=== PATIENT | male | born 1980 | race Caucasian/White ===

== ENCOUNTER 2018-08-20 19:29 | Emergency (ER) | payer OTHER ==
[2018-08-20 19:38] VITALS: BP 134/85
[2018-08-20] MEDS ORDERED: Sodium Chloride 0.9% 10 ML Syringe FLUSH PRN (19:38)
--- NOTE | 2018-08-20 19:52 | EDM.PDOC ---
ED HPI GENERAL MEDICAL PROBLEM - General Chief Complaint: Chest Pain Stated Complaint: PAIN IN CHEST Time Seen by Provider: 08/20/18 19:51 Source of Information: Reports: Patient, RN, RN Notes Reviewed - History of Present Illness INITIAL COMMENTS - FREE TEXT/NARRATIVE: Pt to ER with c/o upper abdominal pressure and burning pain midsternally, with burning in the throat. He states today at noon it got much worse than it has been in the past. States in the past year he has had difficulty with dairy and digestion. Denies SOB. He states today he was concerned about what was happening , and did notice that he was having some numbness and tingling in the fingers and the bottom lip. Onset: Gradual Mid-Sternal Chest Pain Score (Numeric/FACES): 3 - Related Data Allergies Allergy/AdvReac Type Severity Reaction Status Date / Time No Known Allergies Allergy Verified 08/20/18 19:38 Home Meds: Home Meds . [No Known Home Meds] 09/17/15 [History] Past Medical History - Past Surgical History Male Surgical History: Reports: Vasectomy Social & Family History - Family History Family Medical History: Noncontributory - Tobacco Use Smoking Status *Q: Never Smoker Second Hand Smoke Exposure: No - Recreational Drug Use Recreational Drug Use: No ED ROS GENERAL - Review of Systems Review Of Systems: ROS reveals no pertinent complaints other than HPI. ED EXAM, GENERAL - Physical Exam Exam: See Below Exam Limited By: No Limitations General Appearance: Alert, WD/WN, Mild Distress Eye Exam: Bilateral Eye: EOMI, Normal Inspection Ears: Normal External Exam, Hearing Grossly Normal Nose: Normal Inspection Throat/Mouth: Normal Inspection, Normal Voice, No Airway Compromise Head: Atraumatic, Normocephalic Neck: Normal Inspection, Supple, Non-Tender, Full Range of Motion Respiratory/Chest: No Respiratory Distress, Lungs Clear, Normal Breath Sounds, No Accessory Muscle Use, Chest Non-Tender Cardiovascular: Normal Peripheral Pulses, Regular Rate, Rhythm, No Edema, No Gallop, No JVD, No Murmur, No Rub Peripheral Pulses: 2+: Brachial (L), Brachial (R) GI/Abdominal: Normal Bowel Sounds, Soft, Non-Tender (Male) Exam: Deferred Rectal (Males) Exam: Deferred Back Exam: Normal Inspection, Full Range of Motion, NT Extremities: Normal Inspection, Normal Range of Motion, Non-Tender, Normal Capillary Refill, No Pedal Edema Neurological: Alert, Oriented, CN II-XII Intact, Normal Cognition, Normal Gait, Normal Reflexes, No Motor/Sensory Deficits Psychiatric: Normal Affect, Normal Mood, Anxious Skin Exam: Warm, Dry, Intact, Normal Color, No Rash Lymphatic: No Adenopathy Course - Vital Signs Last Recorded V/S: Last Vital Signs Temp 98.1 F 08/20/18 19:33 Pulse 93 08/20/18 19:33 Resp 16 08/20/18 19:33 BP 134/85 08/20/18 19:33 Pulse Ox 98 08/20/18 19:33 - Orders/Labs/Meds Orders: Active Orders 24 hr Category Date Time Status EKG Documentation Completion [RC] STAT Care 08/20/18 19:38 Active Peripheral IV Care [RC] . DIRECTED Care 08/20/18 19:38 Active Chest 1V Frontal [CR] Stat Exams 08/20/18 20:02 Ordered Sodium Chloride 0.9% [Saline Flush] Med 08/20/18 19:38 Active 10 ml FLUSH ASDIRECTED PRN Peripheral IV Insertion Adult [OM.PC] Routine Oth 08/20/18 19:38 Ordered Medication Orders Sodium Chloride (Saline Flush) 10 ml FLUSH ASDIRECTED PRN PRN Reason: Keep Vein Open Last Admin: 08/20/18 19:43 Dose: 10 ml Labs: Laboratory Tests 08/20/18 08/20/18 Range/Units 19:43 19:43 WBC 8.7 (5.0-10.0) 10^3/uL RBC 4.71 (4.6-6.2) 10^6/uL Hgb 14.4 (14.0-18.0) g/dL Hct 41.5 (40.0-54.0) % MCV 88.1 (80-100) fL MCH 30.6 (27.0-34.0) pg MCHC 34.7 (33.0-35.0) g/dL Plt Count 267 (150-450) 10^3/uL Neut % (Auto) 67.2 (42.2-75.2) % Lymph % (Auto) 23.0 (20.5-50.1) % [place] % (Auto) 6.6 (2-8) % Eos % (Auto) 3.0 (1.0-3.0) % Baso % (Auto) 0.2 (0.0-1.0) % Sodium 135 (135-145) mmol/L Potassium 3.6 (3.6-5.0) mmol/L Chloride 99 L (101-111) mmol/L Carbon Dioxide 24.0 (21.0-31.0) mmol/L Anion Gap 15.6 BUN 13 (7-18) mg/dL Creatinine 0.9 (0.6-1.3) mg/dL Est Cr Clr Drug Dosing 109.78 mL/min Estimated GFR (MDRD) > 60 BUN/Creatinine Ratio 14.44 Glucose 100 (74-105) mg/dL Calcium 8.8 (8.4-10.2) mg/dl Total Bilirubin 0.8 (0.2-1.0) mg/dL AST 33 (10-42) IU/L ALT 36 (10-60) IU/L Alkaline Phosphatase 59 (42-121) IU/L Troponin I < 0.02 (0.00-0.02) ng/ml Total Protein 8.2 (6.7-8.2) g/dl Albumin 4.5 (3.2-5.5) g/dl Globulin 3.7 Albumin/Globulin Ratio 1.22 Meds: Medications Generic Name Dose Route Start Last Admin Trade Name Freq PRN Reason Stop Dose Admin Sodium Chloride 10 ml 08/20/18 19:38 08/20/18 19:43 Saline Flush FLUSH 10 ml ASDIRECTED PRN Administration Keep Vein Open Discontinued Medications Generic Name Dose Route Start Last Admin Trade Name Freq PRN Reason Stop Dose Admin Al Hydroxide/Mg Hydroxide 30 ml 08/20/18 20:02 08/20/18 20:09 Gi Cocktail PO 08/20/18 20:03 30 ml ONETIME ONE Administration Pantoprazole Sodium 80 mg 08/20/18 20:50 08/20/18 21:17 Protonix Iv IVPUSH 08/20/18 20:51 80 mg .BOLUS ONE Administration Departure - Departure Time of Disposition: 20:52 Disposition: Home, Self-Care 01 Condition: Fair Clinical Impression: Gastroesophageal reflux disease Qualifiers: Esophagitis presence: esophagitis presence not specified Qualified Code(s): K21.9 - Gastro-esophageal reflux disease without esophagitis Instructions: Indigestion, [id number], Food Choices for Gastroesophageal Reflux Disease, Adult, [id number], Heartburn, [id number], Nonspecific Chest Pain, [id number], Gastroesophageal Reflux Disease, Adult, [id number] Forms: ED Department Discharge Additional Instructions: RX: Omeprazole Drink plenty of water Sit upright for at least 30 minutes after eating Elevate head of bed 30 degrees Follow up with your primary care facility next week - My Orders Last 24 Hours: My Active Orders 08/20/18 19:38 EKG Documentation Completion [RC] STAT Peripheral IV Care [RC] . DIRECTED Sodium Chloride 0.9% [Saline Flush] 10 ml FLUSH ASDIRECTED PRN Peripheral IV Insertion Adult [OM.PC] Routine 08/20/18 20:02 Chest 1V Frontal [CR] Stat - Assessment/Plan Last 24 Hours: My Active Orders 08/20/18 19:38 EKG Documentation Completion [RC] STAT Peripheral IV Care [RC] . DIRECTED Sodium Chloride 0.9% [Saline Flush] 10 ml FLUSH ASDIRECTED PRN Peripheral IV Insertion Adult [OM.PC] Routine 08/20/18 20:02 Chest 1V Frontal [CR] Stat
[2018-08-20] MEDS ORDERED: GI Cocktail Oral Solution 30 ML PO ONE (20:02)
[2018-08-20 20:18] LABS: ANION GAP 15.6; CHLORIDE,CL 99 mmol/L (101-111); SODIUM,NA 135 mmol/L (135-145)
[2018-08-20] MEDS ORDERED: Pantoprazole 40 MG Vial IVPUSH ONE (20:50)
== END 2018-08-20 21:45 | disposition home or self-care (01) ==
LOC: DL.ED 19:29
DX: K21.9 Gastro-esophageal reflux disease without esophagitis (principal)
CPT/HCPCS: 36415; 80053; 84484; 85025; 93005; 96374; 99285; A9270; C9113

== ENCOUNTER 2018-09-14 06:52 | Day surgery (SDC) | payer OTHER ==
[~2018-09-14 06:52] MED LIST: Midazolam 1 MG/ML 2 ML SDV ONE; Sodium Chloride 0.9% 10 ML Syringe FLUSH PRN; fentaNYL 100 MCG/2 ML SDV ONE
[2018-09-14] MEDS ORDERED: Midazolam 1 MG/ML 2 ML SDV IV ONE (06:53)
[2018-09-14] MEDS ORDERED: fentaNYL 100 MCG/2 ML SDV IV ONE (06:53)
[2018-09-14] MEDS: Dextrose 5%-0.45% NaCl 1,000 ML IV SCH (07:08)
[2018-09-14] MEDS: fentaNYL 100 MCG/2 ML SDV IV ONE ×2 (08:05→08:06)
[2018-09-14] MEDS: Midazolam 1 MG/ML 2 ML SDV IV ONE ×2 (08:07)
[2018-09-14 10:14] VITALS: BP 109/64
--- NOTE | 2018-09-14 13:05 | OR ---
DATE: 09/14/2018 PROCEDURE: Esophagogastroduodenoscopy and multiple pinch biopsies. INSTRUMENT USED: [id number] Olympus video panendoscope. PREMEDICATIONS: No oral topical anesthesia used. Fentanyl 100 mcg intravenous, Versed 2 mg intravenous. The procedure was done under pulse oximetry, BP recording, and cloth picker. INDICATION: The patient with persistent upper abdominal pain, unexplained and not responsive to medical measures, on PPI. DESCRIPTION OF PROCEDURE: Esophagogastroduodenoscopy is performed for detection of any active erosive lesions, Farrell esophagus and/or malignancy also under consideration, H. pylori status to be, endoscopic hemostasis therapy if needed. The scope was passed with ease. Adequate visualization of the esophagus was made from proximal to distal areas. No upper esophageal lesions identified. No distal esophageal stricture. No uphill or downhill esophageal varices. No Candace-Leiva tear. No evidence of erosive esophagitis by [place] criteria. No esophageal polyp or tumor mass identified. Z-line was seen at around 40 cm distal to the oral verge, configuration consistent with grade 1 by ZAP classification. No proximal gastric varices noted. Gastric fundus examination by retroflexion showed no polypoid lesions. No gastric ulcer, malignant mass, or vascular ectasia identified. Duodenal bulb showed no ulcer. Visualized second part of the duodenum was unremarkable. Multiple pinch biopsies were taken from the gastric antrum and proximal body and sent for PyloriTek test for H. pylori, and if negative in an hour, the tissue is to be sent for histopathology. No bleeding was noted from any of the visualized areas at the completion of examination. Photographs were taken of the duodenal bulb, gastric antrum, fundus, and distal esophagus. IMPRESSION: Normal study. The patient tolerated the procedure well. [facility] /[id number]
== END 2018-09-14 10:14 | disposition home or self-care (01) ==
LOC: DL.ENDO 06:52
PROVIDERS: ATTEND Internal Medicine Gastroenterology
DX: K92.2 Gastrointestinal hemorrhage, unspecified (principal); Z87.891 Personal history of nicotine dependence
CPT/HCPCS: 43239; 87077; J2250; J3010; J7042

== ENCOUNTER 2023-03-09 19:57 | Emergency (ER) | payer OTHER ==
[2023-03-09] MEDS ORDERED: Sodium Chloride 0.9% 10 ML Syringe FLUSH PRN (20:08)
[2023-03-09 20:25] LABS: BASOPHILS PERCENT AUTO 0.6 % (0.0-1.0); EOSINOPHILS PERCENT AUTO 3.7 % (1.0-3.0); HEMATOCRIT 39.7 % (40.0-54.0); HEMOGLOBIN 13.4 g/dL (14.0-18.0); LYMPHOCYTES PERCENT AUTO 25.8 % (20.5-50.1); MEAN CORPUSCULAR HEMOGLOBIN 30.5 pg (27.0-34.0); MEAN CORPUSCULAR HGB CONC 33.8 g/dL (33.0-35.0); MEAN CORPUSCULAR VOLUME 90.4 fL (80-100); MONOCYTES PERCENT AUTO 8.5 % (2-8); NEUTROPHILS PERCENT AUTO 61.4 % (42.2-75.2); PLATELET COUNT,PLT 254 10^3/uL (150-450); RED BLOOD CELL COUNT 4.39 10^6/uL (4.6-6.2); WHITE BLOOD CELL COUNT,WBC 7.1 10^3/uL (5.0-10.0)
[2023-03-09 20:41] LABS: INR 0.9 (0.9-1.2); PROTHROMBIN TIME 9.3 SEC (9.0-12.0); PTT,PARTIAL THROMBOPLSTIN TIME 28.6 SEC (22.0-34.0)
[2023-03-09 20:45] LABS: LACTIC ACID 0.7 mmol/L (0.4-2.0)
[2023-03-09 20:49] VITALS: BP 129/87; PULSE 77
[2023-03-09 20:51] LABS: A/G RATIO 1.1; ALANINE AMINOTRANSFERASE,ALT 35 U/L (16-63); ALBUMIN 3.9 g/dL (3.4-5.0); ALKALINE PHOSPHATASE 70 U/L (46-116); ANION GAP 12.7 mEq/L (7-13); ASPARTATE AMNIOTRANSFERASE,AST 24 U/L (15-37); BILIRUBIN TOTAL 0.2 mg/dL (0.2-1.0); BLOOD UREA NITROGEN,BUN 12 mg/dL (7-18); BUN/CREATININE RATIO 11.4 (No establ ref range); CARBON DIOXIDE,CO2 29 mmol/L (21-32); CHLORIDE,CL 101 mmol/L (98-107); CREATININE 1.05 mg/dL (0.70-1.30); EST CRCL DRUG DOSING (CG) 89.57 mL/min; GLUCOSE RANDOM 99 mg/dL (70-99); MAGNESIUM 2.2 mg/dL (1.8-2.4); POTASSIUM,K 3.7 mmol/L (3.5-5.1); PROTEIN TOTAL,TP 7.5 g/dL (6.4-8.2); SODIUM,NA 139 mmol/L (136-145)
[2023-03-09 20:52] LABS: C-REACTIVE PROTEIN < 0.50 ng/dL (<=0.50); ESTIMATED GFR 91 mL/min (>=60)
== END 2023-03-09 21:47 | disposition home or self-care (01) ==
LOC: DL.ED 19:57
DX: R07.89 Other chest pain (principal); K21.9 Gastro-esophageal reflux disease without esophagitis; Z79.899 Other long term (current) drug therapy
CPT/HCPCS: 36415; 71045; 80053; 83605; 83735; 84484; 85025; 85610; 85730; 86140; 93005; 93010; 99284; 99285; J3490